=== PATIENT | female | born 1990 | race Caucasian/White ===

== ENCOUNTER 2021-03-12 09:16 | Day surgery (SDC) | payer MEDICAID ==
[2021-03-11 12:38] LABS: BLOOD UREA NITROGEN,BUN 14 mg/dL (7.0-18.0); CARBON DIOXIDE,CO2 24.4 mmol/L (21.0-32.0); CHLORIDE,CL 106 mmol/L (98-107); GLUCOSE RANDOM 87 mg/dL (74-106); POTASSIUM,K 3.6 mmol/L (3.5-5.1); SODIUM,NA 141 mmol/L (136-145)
[~2021-03-12 09:16] MED LIST: Dexamethasone 4 MG/ML 5 ML MDV ONE; Lactated Ringers 1,000 ML IV SCH; Lidocaine 2% 5 ML SDV ONE; Midazolam 1 MG/ML 2 ML SDV ONE; Ondansetron 4 MG/2 ML SDV ONE; Propofol 200 MG/20 ML SDV ONE; Sodium Chloride 0.9% 10 ML SDV IV PRN; Sodium Chloride 0.9% 10 ML Syringe FLUSH PRN; Sodium Chloride 0.9% 2.5 ML Syringe FLUSH PRN; ceFAZolin 1 GM in Premix Bag 1 BAG IV ONE; fentaNYL 250 MCG/5 ML SDV ONE
--- NOTE | 2021-03-12 09:58 | PCM.PREANE ---
Preanesthetic Assessment - Anesthesia/Transfusion/Family Hx Anesthesia History: Prior Anesthesia Without Reaction Family History of Anesthesia Reaction: No Transfusion History: No Prior Transfusion(s) - Review of Systems General: No Symptoms Pulmonary: No Symptoms Cardiovascular: No Symptoms Gastrointestinal: No Symptoms Neurological: No Symptoms Other: Reports: None - Physical Assessment NPO Status Date: 03/12/21 NPO Status Time: 00:01 Vital Signs: Last Vital Signs Temp 99.0 F 03/12/21 09:48 Pulse 68 03/12/21 09:48 Resp 16 03/12/21 09:48 BP 119/59 L 03/12/21 09:48 Pulse Ox 98 03/12/21 09:48 Height: 5 ft 2.5 in Weight: 123 lb ASA Class: 2 Mental Status: Alert & Oriented x3 Airway Class: Mallampati = 2 Dentition: Reports: Normal Dentition ROM/Head Extension: Full Lungs: Clear to Auscultation, Normal Respiratory Effort Cardiovascular: Regular Rate, Regular Rhythm - Lab Values: Laboratory Last Values WBC 5.78 K/uL (4.0-11.0) 03/11/21 12:00 RBC 5.09 M/uL (4.30-5.90) 03/11/21 12:00 Hgb 14.4 g/dL (12.0-16.0) 03/11/21 12:00 Hct 42.3 % (36.0-46.0) 03/11/21 12:00 MCV 83.1 fL (80.0-98.0) 03/11/21 12:00 MCH 28.3 pg (27.0-32.0) 03/11/21 12:00 MCHC 34.0 g/dL (31.0-37.0) 03/11/21 12:00 RDW Std Deviation 38.1 fl (28.0-62.0) 03/11/21 12:00 RDW Coeff of Maribell 13 % (11.0-15.0) 03/11/21 12:00 Plt Count 248 K/uL (150-400) 03/11/21 12:00 MPV 11.60 fL (7.40-12.00) 03/11/21 12:00 Nucleated RBC % 0.0 /100WBC 03/11/21 12:00 Nucleated RBCs # 0 K/uL 03/11/21 12:00 Sodium 141 mmol/L (136-145) 03/11/21 12:00 Potassium 3.6 mmol/L (3.5-5.1) 03/11/21 12:00 Chloride 106 mmol/L (98-107) 03/11/21 12:00 Carbon Dioxide 24.4 mmol/L (21.0-32.0) 03/11/21 12:00 BUN 14 mg/dL (7.0-18.0) 03/11/21 12:00 Creatinine 1.0 mg/dL (0.6-1.0) 03/11/21 12:00 Est Cr Clr Drug Dosing 67.76 mL/min 03/11/21 12:00 Estimated GFR (MDRD) > 60.0 ml/min 03/11/21 12:00 Glucose 87 mg/dL (74-106) 03/11/21 12:00 Calcium 9.2 mg/dL (8.5-10.1) 03/11/21 12:00 HCG, Qual NEGATIVE (NEG) 03/11/21 12:00 Blood Type A POSITIVE 03/11/21 12:00 Antibody Screen NEGATIVE 03/11/21 12:00 - Allergies Allergies/Adverse Reactions: Allergies Allergy/AdvReac Type Severity Reaction Status Date / Time No Known Allergies Allergy Verified 03/06/21 12:41 - Anesthesia Plan Pre-Op Medication Ordered: None - Acknowledgements Anesthesia Type Planned: General Anesthesia Pt an Appropriate Candidate for the Planned Anesthesia: Yes Alternatives and Risks of Anesthesia Discussed w Pt/Guardian: Yes Pt/Guardian Understands and Agrees with Anesthesia Plan: Yes Additional Comments: npo after mn scoliosis occ lbp tob none etoh rarely bmi 22 no cv problems was nauseated after her only surgery - sounds like tooth abcess with sinus involvement par no questions PreAnesthesia Questionnaire - Past Health History Medical/Surgical History: Denies Medical/Surgical History HEENT History: Reports: Other (See Below) Other HEENT History: dental implants Cardiovascular History: Reports: None Respiratory History: Reports: None Gastrointestinal History: Reports: None Genitourinary History: Reports: None CHEF'S ASSISTANT History: Reports: , Spontaneous Musculoskeletal History: Reports: None Neurological History: Reports: None Psychiatric History: Reports: None Endocrine/Metabolic History: Reports: None Hematologic History: Reports: None Immunologic History: Reports: None Oncologic (Cancer) History: Reports: None Dermatologic History: Reports: None - Infectious Disease History Infectious Disease History: Reports: None - Past Surgical History Head Surgeries/Procedures: Reports: None HEENT Surgical History: Reports: Oral Surgery Cardiovascular Surgical History: Reports: None Respiratory Surgical History: Reports: None GI Surgical History: Reports: None Female Surgical History: Reports: D&C Endocrine Surgical History: Reports: None Neurological Surgical History: Reports: None Musculoskeletal Surgical History: Reports: None Oncologic Surgical History: Reports: None Dermatological Surgical History: Reports: None - SUBSTANCE USE Tobacco Use Status *Q: Never Tobacco User - HOME MEDS Home Medications: Home Meds Acetaminophen [Tylenol Extra Strength] 2 tab PO ASDIRECTED PRN 02/26/21 [History] Copper [Paragard T 380-A] 1 implant VAG ONETIME 02/26/21 [History] Multivitamin 1 tab PO DAILY 02/26/21 [History] - CURRENT (IN HOUSE) MEDS Current Meds: Current Medications Lactated Ringer's (Ringers, Lactated) 1,000 mls @ 125 mls/hr IV ASDIRECTED MYRA Sodium Chloride (Sodium Chloride 0.9% 10 Ml Syringe) 10 ml FLUSH ASDIRECTED PRN PRN Reason: Keep Vein Open Sodium Chloride (Sodium Chloride 0.9% 2.5 Ml Syringe) 2.5 ml FLUSH ASDIRECTED PRN PRN Reason: Keep Vein Open Sodium Chloride (Sodium Chloride 0.9% 10 Ml Sdv) 10 ml IV ASDIRECTED PRN PRN Reason: IV Use Discontinued Medications Dexamethasone (Dexamethasone 4 Mg/Ml 5 Ml Mdv) Confirm Administered Dose 20 mg .ROUTE .STK-MED ONE Stop: 03/12/21 08:40 Fentanyl (Fentanyl 250 Mcg/5 Ml Sdv) Confirm Administered Dose 250 mcg .ROUTE .STK-MED ONE Stop: 03/12/21 08:38 Cefazolin Sodium/Dextrose 1 gm (/ Premix) 50 mls @ 100 mls/hr IV ONETIME ONE Stop: 03/05/21 05:29 Lidocaine (Lidocaine 2% 5 Ml Sdv) Confirm Administered Dose 5 ml .ROUTE .STK-MED ONE Stop: 03/12/21 08:40 Midazolam HCl (Midazolam 1 Mg/Ml 2 Ml Sdv) Confirm Administered Dose 2 mg .ROUTE .STK-MED ONE Stop: 03/12/21 08:37 Ondansetron HCl (Ondansetron 4 Mg/2 Ml Sdv) Confirm Administered Dose 4 mg .ROUTE .STK-MED ONE Stop: 03/12/21 08:40 Propofol (Propofol 200 Mg/20 Ml Sdv) Confirm Administered Dose 200 mg .ROUTE .STK-MED ONE Stop: 03/12/21 08:37
[2021-03-12] MEDS ORDERED: Scopolamine 1.5 MG Transdermal Patch TOP ONE (11:15)
[2021-03-12] MEDS ORDERED: Scopolamine 1.5 MG Transdermal Patch ONE (11:18)
[2021-03-12] MEDS ORDERED: Rocuronium Bromide 50 MG/5 ML Syringe ONE (11:37)
[2021-03-12] MEDS ORDERED: Fluorescein 5 ML Vial ONE (12:02)
[2021-03-12] MEDS ORDERED: Sugammadex Sodium 200 MG/2 ML VIAL ONE (12:38)
[2021-03-12] MEDS ORDERED: Ketorolac 30 MG/ML SDV IVPUSH ONE (12:50)
[2021-03-12] MEDS ORDERED: Morphine 4 MG/ML Syringe IVPUSH PRN (12:50)
[2021-03-12] MEDS ORDERED: Acetaminophen/oxyCODONE 325-5 MG Tab PO PRN (12:50)
[2021-03-12] MEDS ORDERED: Promethazine 25 MG/ML SDV IM PRN (12:50)
[2021-03-12] MEDS ORDERED: Belladonna Alkaloids/Opium 16.2-30 MG Supp RECTAL PRN (12:50)
[2021-03-12] MEDS ORDERED: Ondansetron 4 MG/2 ML SDV IVPUSH PRN (12:50)
[2021-03-12] MEDS ORDERED: Lactated Ringers 1,000 ML IV SCH (13:00)
--- NOTE | 2021-03-12 13:02 | PCM.OPNOTE ---
- General Post-Op/Procedure Note Date of Surgery/Procedure: 03/12/21 Operative Procedure(s): TVH, cystoscopy Findings: Normal appearing ovaries/tubes Bilateral patent ureters Pre Op Diagnosis: Menorrhagia Post-Op Diagnosis: Same Anesthesia Technique: General ET Tube Primary Surgeon: Kami Colon Cadd Operator: Guru Silveira Fluid Replacement, Intraop: 2,000 EBL in mLs: 100 Complications: none known Condition: Stable Free Text/Narrative:: Dictation [id number]
[2021-03-12] MEDS ORDERED: Acetaminophen 1,000 MG in Premix Bag 1 BAG IV ONE (13:30)
--- NOTE | 2021-03-12 14:07 | OR ---
SURGEON: Kami Colon M.D. DATE OF PROCEDURE: 03/12/2021 PREOPERATIVE DIAGNOSIS: Menorrhagia. POSTOPERATIVE DIAGNOSIS: Menorrhagia. PROCEDURE: Total vaginal hysterectomy with cystoscopy. TRAVEL PHYSICAL THERAPIST: MD Vickey ANESTHESIA: General endotracheal anesthesia. FLUIDS: 2000 mL of crystalloid. ESTIMATED BLOOD LOSS: 100 mL. COMPLICATIONS: None known. FINDINGS: Boggy uterus, otherwise, normal-appearing tubes, ovaries, and bilateral patent ureters postop. DISPOSITION: The patient to PACU in stable condition. PROCEDURE DETAILS: Sheri is a 30-year-old who has ongoing difficulties with menorrhagia. She has trialed various hormone therapy regimens without relief and she has completed childbearing. At this time, she would like to proceed with definitive intervention in the form of hysterectomy. Risks of procedure have been discussed. Proper consent obtained. The patient was taken to the operating room where she underwent general endotracheal anesthesia, placed in modified dorsal lithotomy position. She was prepped and draped in usual sterile fashion. SCDs to the lower extremities. Hawley to gravity. Received Ancef prophylactically. Time-out was performed. A weighted speculum was introduced in the vagina. Anterior [place] placed. Cervix was grasped with Paulino clamp. Cervix was circumscribed with Bovie cautery. Anteriorly and posteriorly, the overlying mucosa was dissected away from the underlying peritoneum. Posterior peritoneum was tented downwards and entered sharply. Longer weighted speculum was replaced with shorter. Anteriorly cul-de-sac was entered with Metzenbaum scissors. [place] was placed to mobilize the bladder away from the operative field. Kathi clamp was utilized to secure uterosacral ligament on either side, transected, and suture ligated with 2-0 Vicryl. Remainder of sutures will be 2- 0 Vicryl unless otherwise mentioned. Further pedicle on either side incorporating the cardinal ligament up through the round ligament was able to be secured, transected, and suture ligated. The remainder of pedicle on either side incorporating the remainder of broad ligament and the utero tubo-ovarian pedicle were able to be secured, transected, and suture ligated. The pedicle was now inspected. There was some oozing along the right utero tubo-ovarian pedicle. This was secured with [id number] suture. Hemostasis thereafter evident. Tubes and ovaries appeared normal. The uterosacral ligaments on either side were plicated to the vaginal apex. There was a perforating vessel that continued to bleed along the right uterosacral ligament pedicle. Therefore, Kathi clamps was utilized to grasp this region and was suture ligated. At this juncture, hemostasis was evident after inspecting the pedicles. The cuff was now closed using 0 Vicryl in continuous running locked fashion. The Hawley balloon was now desufflated, Hawley catheter was removed. Cystoscope was introduced. Using normal saline as distention media, dome of bladder was visualized followed by the trigone. The right ureteral orifice followed by the left ureteral orifice were able to be visualized and fluorescein-dyed urine was seen streaming from them helping to ensure ureteral patency. The bladder was drained, and the Hawley catheter was replaced after removing cystoscope. The cuff was once again inspected, found to be hemostatic. Sponge, instrument, and needle counts were correct x2. The patient tolerated the procedure well overall. She will go to PACU in stable condition. TJ / LUIS /[id number]
--- NOTE | 2021-03-12 14:59 | PCM.POSTAN ---
POST ANESTHESIA ASSESSMENT - MENTAL STATUS Mental Status: Alert (na anesthetic problems), Oriented - VITAL SIGNS Vital Signs: Last Vital Signs Temp 97.8 F 03/12/21 13:45 Pulse 58 L 03/12/21 14:15 Resp 16 03/12/21 14:15 BP 119/54 L 03/12/21 14:15 Pulse Ox 98 03/12/21 14:15 - RESPIRATORY Respiratory Status: Respiratory Rate WNL, Airway Patent, O2 Saturation Stable - CARDIOVASCULAR CV Status: Pulse Rate WNL, Blood Pressure Stable - GASTROINTESTINAL GI Status: No Symptoms - POST OP HYDRATION Hydration Status: Adequate & Stable
[2021-03-12] MEDS: Acetaminophen/oxyCODONE 325-5 MG Tab PO PRN ×2 (17:19→20:59)
[2021-03-12] MEDS ORDERED: Ketorolac 30 MG/ML SDV IVPUSH PRN (19:00)
[2021-03-12] MEDS ORDERED: Docusate Sodium 100 MG Cap PO PRN (21:00)
[2021-03-13 06:20] LABS: BLOOD UREA NITROGEN,BUN 7 mg/dL (7.0-18.0); CARBON DIOXIDE,CO2 26.6 mmol/L (21.0-32.0); CHLORIDE,CL 106 mmol/L (98-107); GLUCOSE RANDOM 117 mg/dL (74-106); POTASSIUM,K 4.4 mmol/L (3.5-5.1); SODIUM,NA 141 mmol/L (136-145)
[2021-03-13] MEDS: Acetaminophen/oxyCODONE 325-5 MG Tab PO PRN ×2 (06:24→08:13)
--- NOTE | 2021-03-13 07:38 | PCM48HPAN ---
Post Anesthesia Note - EVALUATION WITHIN 48HRS OF ANESTHETIC Vital Signs in Normal Range: Yes Patient Participated in Evaluation: Yes Respiratory Function Stable: Yes Airway Patent: Yes Cardiovascular Function Stable: Yes Hydration Status Stable: Yes Pain Control Satisfactory: Yes Nausea and Vomiting Control Satisfactory: Yes Mental Status Recovered: Yes Vital Signs: Last Vital Signs Temp 99.3 F 03/13/21 05:20 Pulse 50 L 03/13/21 05:20 Resp 16 03/13/21 05:20 BP 94/36 L 03/13/21 05:20 Pulse Ox 98 03/13/21 05:20
[2021-03-13 08:26] VITALS: BP 99/43; PULSE 46
--- NOTE | 2021-03-13 09:58 | PCM.SURGPN ---
- General Info Date of Service: 03/13/21 POD#: 1 Functional Status: Reports: Pain Controlled, Tolerating Diet, Ambulating, Urinating - Review of Systems General: Reports: Fatigue. Denies: Fever, Weakness Pulmonary: Denies: Shortness of Breath Cardiovascular: Denies: Chest Pain, Palpitations, Lightheadedness Gastrointestinal: Reports: Abdominal Pain (mild, alleviated with oral pain medications). Denies: Nausea, Vomiting Genitourinary: Denies: Flank Pain Musculoskeletal: Reports: No Symptoms Skin: Reports: No Symptoms Neurological: Reports: No Symptoms Psychiatric: Reports: No Symptoms - Patient Data Vitals - Most Recent: Last Vital Signs Temp 37.2 C 03/13/21 08:00 Pulse 46 L 03/13/21 08:00 Resp 16 03/13/21 08:00 BP 99/43 L 03/13/21 08:00 Pulse Ox 99 03/13/21 08:00 Weight - Most Recent: 55.792 kg I&O - Last 24 Hours: Intake & Output 03/12/21 03/13/21 03/13/21 22:59 06:59 14:59 Intake Total 620 Output Total 675 6252 225 Balance -97 -1820 -225 Lab Results Last 24 Hrs: Laboratory Results - last 24 hr 03/13/21 03/13/21 Range/Units 05:55 05:55 WBC 13.31 H (4.0-11.0) K/uL RBC 4.09 L (4.30-5.90) M/uL Hgb 11.5 L (12.0-16.0) g/dL Hct 34.2 L (36.0-46.0) % MCV 83.6 (80.0-98.0) fL MCH 28.1 (27.0-32.0) pg MCHC 33.6 (31.0-37.0) g/dL RDW Std Deviation 38.7 (28.0-62.0) fl RDW Coeff of Maribell 13 (11.0-15.0) % Plt Count 232 (150-400) K/uL MPV 11.40 (7.40-12.00) fL Neut % (Auto) 84.0 H (48.0-80.0) % Lymph % (Auto) 10.9 L (16.0-40.0) % [place] % (Auto) 5.0 (0.0-15.0) % Eos % (Auto) 0.0 (0.0-7.0) % Baso % (Auto) 0.1 (0.0-1.5) % Neut # (Auto) 11.2 H (1.4-5.7) K/uL Lymph # (Auto) 1.5 (0.6-2.4) K/uL [place] # (Auto) 0.7 (0.0-0.8) K/uL Eos # (Auto) 0.0 (0.0-0.7) K/uL Baso # (Auto) 0.0 (0.0-0.1) K/uL Nucleated RBC % 0.0 /100WBC Nucleated RBCs # 0 K/uL Sodium 141 (136-145) mmol/L Potassium 4.4 (3.5-5.1) mmol/L Chloride 106 (98-107) mmol/L Carbon Dioxide 26.6 (21.0-32.0) mmol/L BUN 7 (7.0-18.0) mg/dL Creatinine 0.9 (0.6-1.0) mg/dL Est Cr Clr Drug Dosing 75.29 mL/min Estimated GFR (MDRD) > 60.0 ml/min Glucose 117 H (74-106) mg/dL Calcium 9.0 (8.5-10.1) mg/dL Med Orders - Current: Current Medications Belladonna Alkaloids/Opium (Belladonna Alkaloids/Opium 16.2-30 Mg Supp) 1 supp RECTAL Q4H PRN PRN Reason: Abdominal Pain Docusate Sodium (Docusate Sodium 100 Mg Cap) 100 mg PO BID PRN PRN Reason: Constipation Last Admin: 03/13/21 09:26 Dose: 100 mg Documented by: Lactated Ringer's (Ringers, Lactated) 1,000 mls @ 125 mls/hr IV ASDIRECTED [facility] Last Admin: 03/12/21 20:10 Dose: 125 mls/hr Documented by: Ketorolac Tromethamine (Ketorolac 30 Mg/Ml Sdv) 30 mg IVPUSH Q6H PRN PRN Reason: Pain (severe 7-10) Stop: 03/17/21 19:01 Morphine Sulfate (Morphine 4 Mg/Ml Syringe) 4 mg IVPUSH Q2H PRN PRN Reason: Pain (severe 7-10) Last Admin: 03/12/21 14:18 Dose: 4 mg Documented by: Ondansetron HCl (Ondansetron 4 Mg/2 Ml Sdv) 4 mg IVPUSH Q6H PRN PRN Reason: Nausea/Vomiting Last Admin: 03/12/21 17:58 Dose: 4 mg Documented by: Oxycodone/Acetaminophen (Acetaminophen/Oxycodone 325-5 Mg Tab) 1 tab PO Q4H PRN PRN Reason: Pain (moderate 4-6) Last Admin: 03/13/21 08:13 Dose: 1 tab Documented by: Oxycodone/Acetaminophen (Acetaminophen/Oxycodone 325-5 Mg Tab) 2 tab PO Q4H PRN PRN Reason: Pain (moderate 4-6) Promethazine HCl (Promethazine 25 Mg/Ml Sdv) 25 mg IM Q6H PRN PRN Reason: Nausea/Vomiting Sodium Chloride (Sodium Chloride 0.9% 10 Ml Syringe) 10 ml FLUSH ASDIRECTED PRN PRN Reason: Keep Vein Open Sodium Chloride (Sodium Chloride 0.9% 2.5 Ml Syringe) 2.5 ml FLUSH ASDIRECTED PRN PRN Reason: Keep Vein Open Sodium Chloride (Sodium Chloride 0.9% 10 Ml Sdv) 10 ml IV ASDIRECTED PRN PRN Reason: IV Use Discontinued Medications Dexamethasone (Dexamethasone 4 Mg/Ml 5 Ml Mdv) Confirm Administered Dose 20 mg .ROUTE .STK-MED ONE Stop: 03/12/21 08:40 Fentanyl (Fentanyl 250 Mcg/5 Ml Sdv) Confirm Administered Dose 250 mcg .ROUTE .STK-MED ONE Stop: 03/12/21 08:38 Fluorescein Sodium (Fluorescein 5 Ml Vial) Confirm Administered Dose 5 ml .ROUTE .STK-MED ONE Stop: 03/12/21 12:03 Cefazolin Sodium/Dextrose 1 gm (/ Premix) 50 mls @ 100 mls/hr IV ONETIME ONE Stop: 03/05/21 05:29 Lactated Ringer's (Ringers, Lactated) 1,000 mls @ 125 mls/hr IV ASDIRECTED MYRA Last Admin: 03/12/21 09:56 Dose: 125 mls/hr Documented by: Cefazolin Sodium/Dextrose (Ancef 1 Gm/50 Ml) Confirm Administered Dose 50 mls @ as directed .ROUTE .STK-MED ONE Stop: 03/12/21 11:58 Acetaminophen 1,000 mg/ Premix 100 mls @ 400 mls/hr IV NOW ONE Stop: 03/12/21 13:44 Last Admin: 03/12/21 13:32 Dose: 400 mls/hr Documented by: Acetaminophen (Ofirmev 1000 Mg/100 Ml) Confirm Administered Dose 100 mls @ as directed .ROUTE .STK-MED ONE Stop: 03/12/21 13:29 Ketorolac Tromethamine (Ketorolac 30 Mg/Ml Sdv) 30 mg IVPUSH ONETIME ONE Stop: 03/12/21 12:51 Last Admin: 03/12/21 14:09 Dose: Not Given Documented by: Lidocaine (Lidocaine 2% 5 Ml Sdv) Confirm Administered Dose 5 ml .ROUTE .STK-MED ONE Stop: 03/12/21 08:40 Midazolam HCl (Midazolam 1 Mg/Ml 2 Ml Sdv) Confirm Administered Dose 2 mg .ROUTE .STK-MED ONE Stop: 03/12/21 08:37 Ondansetron HCl (Ondansetron 4 Mg/2 Ml Sdv) Confirm Administered Dose 4 mg .ROUTE .STK-MED ONE Stop: 03/12/21 08:40 Propofol (Propofol 200 Mg/20 Ml Sdv) Confirm Administered Dose 200 mg .ROUTE .STK-MED ONE Stop: 03/12/21 08:37 Rocuronium [place] (Rocuronium [place] 50 Mg/5 Ml Syringe) Confirm Administered Dose 50 mg .ROUTE .STK-MED ONE Stop: 03/12/21 11:38 Scopolamine (Scopolamine 1.5 Mg Transdermal Patch) 1.5 mg TOP ONETIME ONE Stop: 03/12/21 11:16 Last Admin: 03/12/21 11:22 Dose: 1.5 mg Documented by: Scopolamine (Scopolamine 1.5 Mg Transdermal Patch) Confirm Administered Dose 1.5 mg .ROUTE .STK-MED ONE Stop: 03/12/21 11:19 Last Admin: 03/12/21 14:10 Dose: Not Given Documented by: Sugammadex Sodium (Sugammadex Sodium 200 Mg/2 Ml Vial) Confirm Administered Dose 200 mg .ROUTE .STK-MED ONE Stop: 03/12/21 12:39 - Exam General: Alert, Oriented Lungs: Normal Respiratory Effort Cardiovascular: Regular Rate, Regular Rhythm GI/Abdominal Exam: Normal Bowel Sounds, Soft, Non-Tender Extremities: No: Pedal Edema, Messi's Sign Skin: Warm, Dry, Intact Neurological: No New Focal Deficit Psy/Mental Status: Alert, Normal Affect, Normal Mood Sepsis Event Note - Evaluation Sepsis Screening Result: No Definite Risk - Focused Exam Vital Signs: Vital Signs Temp Pulse Resp BP Pulse Ox 03/13/21 08:00 37.2 C 46 L 16 99/43 L 99 03/13/21 05:20 37.4 C 50 L 16 94/36 L 98 03/13/21 00:05 37.4 C 50 L 16 94/51 L 99 - Problem List & Annotations (1) Status post hysterectomy SNOMED Code(s): 265339817, 603594061, 165193912 Code(s): Z90.710 - ACQUIRED ABSENCE OF BOTH CERVIX AND UTERUS Status: Acute Current Visit: Yes - Problem List Review Problem List Initiated/Reviewed/Updated: Yes - My Orders Last 24 Hours: Active Orders 24 hr Category Date Time Status Patient Status [ADT] Routine ADT 03/12/21 12:50 Active Antiembolic Devices [RC] PER UNIT ROUTINE Care 03/12/21 12:50 Active May Shower [RC] ASDIRECTED Care 03/12/21 12:50 Active Notify Provider Intake and Out [RC] ASDIRECTED Care 03/12/21 12:50 Active Notify Provider Vital Signs [RC] ASDIRECTED Care 03/12/21 12:50 Active Oxygen Therapy [RC] ASDIRECTED Care 03/12/21 12:50 Active RT Incentive Spirometry [RC] Q2HWA Care 03/12/21 12:50 Active Ready for Discharge [RC] PER UNIT ROUTINE Care 03/13/21 09:56 Ordered Up With Assistance [RC] PER UNIT ROUTINE Care 03/12/21 12:50 Active Up ad Katey [RC] PER UNIT ROUTINE Care 03/12/21 12:50 Active Vital Signs [RC] PER UNIT ROUTINE Care 03/12/21 12:50 Active Regular Diet [DIET] Diet 03/12/21 Lunch Active Acetaminophen/oxyCODONE [Percocet 325-5 MG] Med 03/12/21 12:50 Active 1 tab PO Q4H PRN Acetaminophen/oxyCODONE [Percocet 325-5 MG] Med 03/12/21 12:50 Active 2 tab PO Q4H PRN Belladonna/Opium [B & O Supprettes No. 15A] Med 03/12/21 12:50 Active 1 supp RECTAL Q4H PRN Docusate Sodium [Colace] Med 03/12/21 21:00 Active 100 mg PO BID PRN Ketorolac [Toradol] Med 03/12/21 19:00 Active 30 mg IVPUSH Q6H PRN Lactated Ringers [Ringers, Lactated] 1,000 ml Med 03/12/21 13:00 Active IV ASDIRECTED Morphine Med 03/12/21 12:50 Active 4 mg IVPUSH Q2H PRN Ondansetron [Zofran] Med 03/12/21 12:50 Active 4 mg IVPUSH Q6H PRN Promethazine [Phenergan] Med 03/12/21 12:50 Active 25 mg IM Q6H PRN Peripheral IV Discontinue [OM.PC] Routine Oth 03/12/21 12:50 Ordered Sequential Compression Device [OM.PC] Per Unit Routine Oth 03/12/21 12:50 Ordered Resuscitation Status Routine Resus Stat 03/12/21 12:50 Ordered Medication Orders Belladonna Alkaloids/Opium (Belladonna Alkaloids/Opium 16.2-30 Mg Supp) 1 supp RECTAL Q4H PRN PRN Reason: Abdominal Pain Docusate Sodium (Docusate Sodium 100 Mg Cap) 100 mg PO BID PRN PRN Reason: Constipation Last Admin: 03/13/21 09:26 Dose: 100 mg Documented by: ELICIA Lactated Ringer's (Ringers, Lactated) 1,000 mls @ 125 mls/hr IV ASDIRECTED MYRA Last Admin: 03/12/21 20:10 Dose: 125 mls/hr Documented by: DELMIS Ketorolac Tromethamine (Ketorolac 30 Mg/Ml Sdv) 30 mg IVPUSH Q6H PRN PRN Reason: Pain (severe 7-10) Stop: 03/17/21 19:01 Morphine Sulfate (Morphine 4 Mg/Ml Syringe) 4 mg IVPUSH Q2H PRN PRN Reason: Pain (severe 7-10) Last Admin: 03/12/21 14:18 Dose: 4 mg Documented by: CARMELA Ondansetron HCl (Ondansetron 4 Mg/2 Ml Sdv) 4 mg IVPUSH Q6H PRN PRN Reason: Nausea/Vomiting Last Admin: 03/12/21 17:58 Dose: 4 mg Documented by: CARMELA Oxycodone/Acetaminophen (Acetaminophen/Oxycodone 325-5 Mg Tab) 1 tab PO Q4H PRN PRN Reason: Pain (moderate 4-6) Last Admin: 03/13/21 08:13 Dose: 1 tab Documented by: Admin: 03/13/21 06:24 Dose: 1 tab Documented by: Admin: 03/12/21 20:59 Dose: 1 tab Documented by: Admin: 03/12/21 17:19 Dose: 1 tab Documented by: CARMELA Oxycodone/Acetaminophen (Acetaminophen/Oxycodone 325-5 Mg Tab) 2 tab PO Q4H PRN PRN Reason: Pain (moderate 4-6) Promethazine HCl (Promethazine 25 Mg/Ml Sdv) 25 mg IM Q6H PRN PRN Reason: Nausea/Vomiting Sodium Chloride (Sodium Chloride 0.9% 10 Ml Syringe) 10 ml FLUSH ASDIRECTED PRN PRN Reason: Keep Vein Open Sodium Chloride (Sodium Chloride 0.9% 2.5 Ml Syringe) 2.5 ml FLUSH ASDIRECTED PRN PRN Reason: Keep Vein Open Sodium Chloride (Sodium Chloride 0.9% 10 Ml Sdv) 10 ml IV ASDIRECTED PRN PRN Reason: IV Use - Assessment Assessment (Free Text/Narrative):: POD 1 status post TVH/cystoscopy - Plan Plan (Free Text/Narrative):: Labs and VS are reasuring. Has minimal vaginal bleeding, voiding without difficulty. Would like to go home. Disharge instructions reviewed. Follow up at [facility] 2 and 6 weeks. Discharge to home.
== END 2021-03-13 11:25 | disposition home or self-care (01) ==
LOC: MW.SDS 09:16 → MW.OB 15:06 → MW.SDS 03-13 11:25
PROVIDERS: ATTEND Obstetrics & Gynecology
DX: N80.0 Endometriosis of uterus (principal); N92.0 Excessive and frequent menstruation with regular cycle; M41.9 Scoliosis, unspecified; Z97.5 Presence of (intrauterine) contraceptive device
CPT/HCPCS: 36415; 58260; 80048; 84703; 85025; 85027; 86850; 86900; 86901; 88307; A9270; J0131; J0690; J1100; J2250; J2270; J2405; J2704; J3010; J3490; J7120; 00944